=== PATIENT | male | born 1960 | race Two or more races ===

== ENCOUNTER 2017-06-26 10:42 | Day surgery (SDC) | payer OTHER, MEDICAID ==
[2017-06-26] MEDS ORDERED: LR 1,000 ML IV ONE (11:10)
[2017-06-26] MEDS ORDERED: MIDAZOLAM 2 MG/2 ML VIAL IVP ONE (11:57)
--- NOTE | 2017-06-26 12:01 | PDANEPAE ---
ANE History of Present Illness Patient presents for EGD, Colonoscopy ANE Past Medical History - Cardiovascular History Hx Hypertension: No Hx Arrhythmias: No Hx Chest Pain: No Hx Coronary Artery / Peripheral Vascular Disease: No Hx CHF / Valvular Disease: No Hx Palpitations: No Cardiovascular History Comment: ABN EKGs. POSSIBLE SD IN PAST - Pulmonary History Hx COPD: No Hx Asthma/Reactive Airway Disease: No Hx Recent Upper Respiratory Infection: Yes Hx Oxygen in Use at Home: Yes Hx Sleep Apnea: No Sleep Apnea Screening Result - Last Documented: Negative Pulmonary History Comment: uses 3L o2 at night for sarcoidosis and this has helped maryjo sx of snoring and apnea - Neurologic History Hx Cerebrovascular Accident: No Hx Seizures: Yes Hx Dementia: No Neurologic History Comment: epilepsy - Endocrine History Hx Diabetes: No - Renal History Hx Renal Disorders: No - Liver History Hx Hepatic Disorders: No - Neurological & Psychiatric Hx Hx Neurological and Psychiatric Disorders: No Neurological / Psychiatric History Comment: on Prozac and Cymbalta. Denies depression. - Cancer History Hx Cancer: Yes Cancer History Comment: Hodgkin's lymphoma - Congenital Disorder History Hx Congenital Disorders: No Congenital History Comment: hodgins lymphoma - GI History Hx Gastrointestinal Disorders: No Gastrointestinal History Comment: constipation due to narcotics - Other Health History Other Health History: colonoscopy for low iron. Rash RUE-"jumped to LUE"- on Antibx. - Chronic Pain History Chronic Pain: Yes - Surgical History Prior Surgeries: 12 back surgeries l4-s1 areas. repair bowels after complications from back surgery. 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 tonsillectomy as child ANE Review of Systems - Exercise capacity METS (RN): 4 METS ANE Patient History - Allergies Allergies/Adverse Reactions: levofloxacin [From Levaquin] Allergy (Severe, Verified 06/18/17 13:29) Swelling/neck,face,throat Gadolinium-Containing Contrast Medi Allergy (Verified 06/18/17 13:29) Anaphylaxis - Home Medications Home medications: home medication list seen and reviewed Home Medications: Atorvastatin Calcium [Lipitor 40 mg (*)] 40 mg PO DAILY20 12/10/12 [Last Taken 06/25/17] DULoxetine [Cymbalta 60 MG (*)] 60 mg PO HS 12/10/12 [Last Taken 06/25/17] HYDROmorphone HCL [Dilaudid 4 mg (*)] 2 tab PO 5XD PRN 12/10/12 [Last Taken 2 Weeks Ago] LORazepam [Ativan (*)] 1 mg PO DAILY PRN 12/10/12 [Last Taken 06/25/17] Oxycodone HCl 1 tab PO Q4 PRN 12/10/12 [Last Taken 06/26/17] oxyCODONE CR [Oxycontin] 80 mg PO QID 12/10/12 [Last Taken 06/25/17] carBAMazepine ER [Carbatrol (*)] 400 mg PO DAILY 08/09/14 [Last Taken 06/26/17] carBAMazepine ER [Carbatrol (*)] 600 mg PO HS 08/09/14 [Last Taken 06/25/17] FLUoxetine [Prozac 10 MG (*)] 10 mg PO DAILY 11/01/15 [Last Taken 06/25/17] Temazepam [Restoril] 30 mg PO HS PRN 11/01/15 [Last Taken 06/25/17] Keflex 06/18/17 [Last Taken 06/25/17] - NPO status NPO Status: no food or drink >8 hours NPO Since - Liquids (Date): 06/25/17 NPO Since - Liquids (Time): 19:00 NPO Since - Solids (Date): 06/25/17 NPO Since - Solids (Time): 09:00 - Anes Hx Anes Hx: no prior problems - Smoking Hx Smoking Status: Never smoked ANE Labs/Vital Signs - Vital Signs Blood Pressure: 131/82 Heart Rate: 77 Respiratory Rate: 16 O2 Sat (%): 92 Height: 180.34 cm Weight: 104.326 kg ANE Physical Exam - Airway Neck exam: FROM Mallampati Score: Class 2 Mouth exam: normal dental/mouth exam - Pulmonary Pulmonary: no respiratory distress - Cardiovascular Cardiovascular: regular rate and rhythym - ASA Status ASA Status: III ANE Anesthesia Plan Anesthesia Plan: GA with mask (RBA discussed, patient agrees to proceed)
[2017-06-26] MEDS ORDERED: PROPOFOL/EMULSION 500 MG/50 ML BOTTLE IV ONE ×2 (12:08→12:52)
[2017-06-26] MEDS ORDERED: LIDOCAINE 2% 5 ML SDV ONE (12:19)
--- NOTE | 2017-06-26 12:22 | PDGENHP ---
History & Physical Chief Complaint: anmiea, iron def History of Present Illness: iron def Pertinent Past, Social, Family History: no tobacco, rare alcohol, dad age 70's, daughter age 30's Relevant Physical Exam: cta, s1s2, rrr, +BS, soft nt Cardiorespiratory Assessment: clss 2 pt
[2017-06-26] MEDS ORDERED: NALOXONE HCL 0.4 MG/ML INJ IVP PRN (12:31)
[2017-06-26] MEDS ORDERED: ONDANSETRON 4 MG/2 ML VIAL IVP PRN (12:31)
[2017-06-26 14:52] VITALS: BP 114/70; PULSE 51; RESP 18; TEMP 97.5; O2SAT 97
--- NOTE | 2017-06-26 15:12 | POSTANESTH ---
Post Anesthetic Evaluation Cardiovascular Status: Normal, Stable Respiratory Status: Normal, Stable, Similar to Pre-op Cond. Level of Consciousness/Mental Status: Can Participate in Eval Pain Control: Adequate, Prn Tx Ordered Nausea/Vomiting Control: Adequate, Prn Tx Ordered Complications Possibly Related to Anesthesia: None Noted
--- NOTE | 2017-06-26 22:58 | GPN ---
[f rep st] PROCEDURE NOTE PROCEDURE: Esophagogastroduodenoscopy and colonoscopy. INDICATION: Iron deficiency. Family history of colon cancer in his daughter in her 30s. PREOPERATIVE DIAGNOSIS: Rule out duodenitis, ulcers, masses, polyps, cancer. Personal history of colon polyps removed previously in 2009. INFORMED CONSENT: I had a detailed discussion with the patient regarding the procedure, alternatives, benefits, and risks including bleeding, perforation, infection, risk of medication. Informed consent was signed and witnessed. COMPLICATIONS: None immediate. MEDICATIONS USED: IV general as per Dr. Amaya. DESCRIPTION OF PROCEDURE: After adequate IV general sedation, the patient remained in the left lateral decubitus position. The forward viewing upper endoscope was inserted per pharynx and advanced under direct visualization down the esophagus. The esophageal mucosa was normal. The endoscope was advanced in the stomach. There was diffuse gastritis, a small amount of punctate heme. There were no ulcers or masses. The endoscope was advanced in the duodenum. There were nodules in the duodenum consistent with his previous history of gastric heterotopic mucosa. I did biopsy the nodules. There was normal appearing mucosa in the duodenal sweep and bulb for evaluation of celiac sprue and the nodules. I obtained biopsies of the stomach from the body and the antrum for evaluation of gastritis. The endoscope was then completely removed, confirming the above findings. The patient tolerated the procedure well and was repositioned for colonoscopy. COLONOSCOPY PROCEDURE REPORT A visual and digital anorectal examination was performed. The video colonoscope was inserted in the rectum and advanced under visualization to the cecum, identified by the ileocecal valve, confluence of taeniae, appendicial orifice. The procedure was difficult secondary to significant looping, multiple surgeries and patient's body habitus. It was accomplished by putting patient on his back and applying manual pressure with scope reduction and shortening of loops. There was a small 3 mm polyp in the transverse colon that was removed in total by cold biopsy and piecemeal fashion. There was an elevated erosive area in the distal transverse colon that was biopsied and removed as well. There were no other evidence of polyps, masses, or colitis; however the prep was only fair and small lesions may have been missed. Retroflex examination was performed in the rectum. The endoscope was then completely withdrawn, confirming the above findings. The patient tolerated the procedure well and was transferred to the recovery room in satisfactory condition. IMPRESSION: 1. Diffuse gastritis, likely source of iron deficiency. 2. Gastric nodules, previous history of gastric heterotopic mucosa. 3. Normal esophagus. 4. A 3 mm polyp in transverse colon, removed in total by cold biopsy in piecemeal fashion. 5. Raised erosion in distal transverse colon, removed with cold biopsy. RECOMMENDATIONS: 1. Follow up pathology. 2. Increase acid reducing medications. I believe the patient should be on a PPI q. a.m. half an hour before breakfast as well as considering a nighttime H2 receptor antagonist if acid reflux is an issue at night or he has more discomfort. Otherwise once daily PPI should help heal up his gastritis. 3. Follow up pathology. If no H pylori is noted, recommend evaluating for H pylori. This could be done with serology. 4. Repeat colonoscopy in 2 years. I am going to ask Dr. Moreno to follow up on the patient's daughter's cancer. She was 33 when she had the cancer and generic test should be run on that tumor. I do not believe she lives in the area but I am not sure. I have also spoken to the patient's who will speak with Dr. Moreno about this as well. 5. Follow up with primary care physician as scheduled. 6. Further recommendations to follow results of above and clinical course. I do believe the gastritis that we noted on the esophagogastroduodenoscopy is the cause of the patient's iron deficiency. The duodenal nodules are most likely gastric heterotopic mucosa which has been biopsied in the past. If HNPCC or other genetic syndrome is not felt to be likely, I would still repeat in the colonoscopy in 3 years given the prep on this exam. If HNPCC or other genetic syndrome is considered to be likely or is positive, then recommend repeat colonoscopy at 2 year intervals. Thank you for allowing me to participate in the patient's health care. Do not hesitate to call me with any questions. /[id number]/MODL MTDD
== END 2017-06-26 14:35 | disposition home or self-care (01) ==
LOC: FSGY 10:42
PROVIDERS: ATTEND Internal Medicine Gastroenterology
DX: D12.3 Benign neoplasm of transverse colon (principal); K29.71 Gastritis, unspecified, with bleeding; D50.9 Iron deficiency anemia, unspecified; Z86.010 Personal history of colon polyps; Z83.71 Family history of colonic polyps
CPT/HCPCS: J2250; J2704

== ENCOUNTER → 2018-06-27 | Outpatient (CLI) | payer OTHER | LOC: CIMAGING 11:29 | PROVIDERS: ATTEND Family Medicine | DX: M25.511 Pain in right shoulder (principal) | CPT/HCPCS: 73030-PO ==